=== PATIENT | male | born 2000 | race Caucasian/White ===

== ENCOUNTER 2025-07-19 11:46 | Emergency (ER) | payer OTHER ==
[~2025-07-19] VITALS: Ht 170.2 cm; Wt 78.0 kg
[2025-07-19 11:50] VITALS: O2SAT 98
[2025-07-19] MEDS: LIDOCAINE 5% PATCH TOP ONE (15:52)
[2025-07-19] MEDS ORDERED: LIDO700A30 TP (16:32)
[2025-07-19] MEDS ORDERED: IBUP-1455 MT (16:32)
[2025-07-19 16:46] VITALS: BP 124/81; PULSE 82; RESP 15; TEMP 36.8; O2SAT 98
== END 2025-07-19 16:48 | disposition home or self-care (01) ==
LOC: ER 11:46
DX: S22.41XA Multiple fractures of ribs, right side, initial encounter for closed fracture (principal); V43.52XA Car driver injured in collision with other type car in traffic accident, initial encounter; X58.XXXA Exposure to other specified factors, initial encounter; Y93.89 Activity, other specified; Y92.410 Unspecified street and highway as the place of occurrence of the external cause; Y99.8 Other external cause status
CPT/HCPCS: 72131; 71250; 99284; Z7610; A4606